=== PATIENT | female | born 2000 | race Caucasian/White ===

== ENCOUNTER 2019-03-29 00:30 | Emergency (ER) | payer OTHER, SELFPAY ==
[2019-03-29 00:36] VITALS: BP 119/70; PULSE 99; RESP 14; TEMP 36.8; O2SAT 98; BMI 27.3
[2019-03-29] MEDS: SODIUM CHLORIDE 0.9% 1,000 ML 1000 ML IV (00:50)
[2019-03-29 00:54] LABS: Add Manual Diff / Slide Review NO; Basophils Absolute Auto 0 /uL (0-100); Basophils Percent Auto 0.1 % (0-2); Eosinophils Absolute Auto 0 /uL (0-450); Hematocrit 40.7 % (36-46); Hemoglobin 13.6 g/dL (12.0-16.0); Lymphocytes Absolute Auto 1400 /uL (1100-4500); Lymphocytes Percent Auto 9.9 % (25-40); Mean Corpuscular HGB Conc 33.6 % (30-36); Mean Corpuscular Volume 89.3 fL (80-100); Monocytes Absolute Auto 700 /uL (0-900); Monocytes Percent Auto 4.8 % (3-14); Neutrophils Absolute Auto 12100 /uL (1500-7000); Neutrophils Percent Auto 85.2 % (50-75); Platelet Count 289 X10^3/uL (150-400); Red Blood Cell Count 4.55 X10^6/uL (4.0-5.2); Red Cell Distribution Width 12.9 % (11.6-14.8); White Blood Cell Count 14.2 X10^3/uL (4.5-11.0)
[2019-03-29 01:03] LABS: Alanine Aminotransferase 21 IU/L (9-52); Albumin 4.5 g/dL (3.5-5.0); Albumin Globulin Ratio 1.2 (1.0-2.8); Alkaline Phosphatase 84 U/L (38-126); Aspartate Aminotransferase 23 IU/L (14-36); BUN Creatinine Ratio 14.4 (6-22); Bilirubin Total 0.7 mg/dL (0.2-1.3); Blood Urea Nitrogen 13 mg/dL (7-17); Calcium 9.6 mg/dL (8.4-10.2); Carbon Dioxide 30 mmol/L (22-32); Chloride 100 mmol/L (98-107); Estimated Glomerular Filt Rate > 60.0 mL/min (>60); Globulin 3.7 g/dL (1.7-4.1); Glucose 142 mg/dL (70-100); HEMOLYSIS < 15 (0-50); Lipase 20 U/L (23-300); Potassium 4.5 mmol/L (3.4-5.1); Sodium 140 mmol/L (137-145); Total Protein 8.2 g/dL (6.3-8.2)
--- NOTE | 2019-03-29 01:31 | ED_ITS ---
HPI - Abdominal Pain General Chief Complaint: Abdominal Pain Stated Complaint: left side abdomen pain with throwing up all day Time Seen by Provider: 03/29/19 00:35 Source: patient Mode of arrival: Ambulatory Limitations: no limitations History of Present Illness HPI narrative: 18-year-old female here for evaluation of diarrhea, left-sided abdominal pain and nausea and vomiting. States the symptoms started this m orning and of continued throughout today. Multiple episodes of each. States the last time she had diarrhea was approximately noon today however she has vomited throughout the day. Went to an outside emergency department prior to visit here in the ER. Had labs and urine obtained. No imaging studies were performed for the patient. She was discharged home with prescriptions for medications. States that after she went home she continued to vomit. She was also told that if her abdominal pain worsen she should return to the emergency department which it did. Related Data Home Medications Medication Instructions Recorded Confirmed levothyroxine 50 mcg PO DAILY 03/29/19 03/29/19 Previous Rx's Medication Instructions Recorded hydrocodone-acetaminophen [[place]] 1 tab PO Q4-6H PRN #10 tab 03/29/19 ondansetron 4 mg PO Q6H PRN #10 tab 03/29/19 Allergies Allergy/AdvReac Type Severity Reaction Status Date / Time No Known Drug Allergies Allergy Verified 03/29/19 00:40 Review of Systems Constitutional Constitutional: Denies fever(s) and Denies headache(s) ENT Ears, Nose, Mouth, and Throat: Denies headache(s) Cardiovascular Cardiovascular: Denies chest pain and Denies dyspnea Respiratory Respiratory: Denies dyspnea Gastrointestinal Gastrointestinal: Reports abdominal pain, Reports diarrhea, Reports nausea and Reports vomiting Genitourinary Genitourinary: Denies dysuria Musculoskeletal Musculoskeletal: Denies myalgias and Denies arthralgias Integumentary/Breasts Skin/Breast: Denies lesions and Denies rash Neurologic Neurologic: Denies behavioral changes and Denies headache(s) Psychiatric Psychiatric: Denies behavioral changes Hematologic/Lymphatic Hematologic/Lymphatic: Denies easy bleeding and Denies easy bruising [facility] Medical History Healthy adult (Acute) Social History Smoking Status: Never smoker Social History Smoking Status: Never smoker Exam Initial Vital Signs Initial Vital Signs: Vital Signs Temperature 98.3 F 03/29/19 00:36 Pulse Rate 99 H 03/29/19 00:36 Respiratory Rate 14 03/29/19 00:36 Blood Pressure 119/70 03/29/19 00:36 Pulse Oximetry 98 10 00:36 Const General: cooperative, comfortable, well developed and well groomed Orientation: awake and oriented x3 HENMT Head: normal to inspection and normocephalic Resp Effort & Inspection: normal respiratory effort Auscultation: clear to auscultation bilaterally Cardio Rate: regular rate Rhythm: regular rhythm GI Inspection: non-distended Palpation: No firm and tender (Left side of abdomen) Back/Spine/Pelvis Back: No CVA tenderness Skin Lesions: no lesions Rashes: no rashes Neuro General: alert and awake Cognition: normal cognition Speech: speech normal Extrem General: normal to inspection and capillary refill normal Psych Appearance: grossly normal and well kempt Course Orders Ordered: ED Orders 03/29/19 00:45 Complete Blood Count AUTO DIFF Stat Comprehensive Metabolic Panel Stat Lipase Stat Test Serum,Qual Stat 03/29/19 01:32 CT abdomen pelvis w con Stat 03/29/19 02:15 Urine Microscopic Stat Discontinued Medications Hydrocodone Bitart/Acetaminophen (Vicodin Prepack) 1 bottle MISC SEEINSTR ONE Stop: 03/29/19 04:48 Last Admin: 03/29/19 04:54 Dose: 1 bottle Documented by: MARIA M Sodium Chloride (Normal Saline 0.9%) 1,000 mls @ 1,000 mls/hr IV BOLUS ONE Stop: 03/29/19 01:34 Last Infusion: 03/29/19 02:09 Dose: 0 mls/hr Documented by: MARIA M Admin: 03/29/19 00:50 Dose: 1,000 mls/hr Documented by: MARIA M Morphine Sulfate (Morphine) 2 mg IV NOW ONE Stop: 03/29/19 01:35 Last Admin: 03/29/19 03:43 Dose: Not Given Documented by: MARIA M Morphine Sulfate (Morphine) 4 mg IV NOW ONE Stop: 03/29/19 03:33 Last Admin: 03/29/19 03:41 Dose: 2 mg Documented by: MARIA M Ondansetron HCl (Zofran Odt Prepack) 1 bottle MISC SEEINSTR ONE Stop: 03/29/19 04:48 Last Admin: 03/29/19 04:55 Dose: 1 bottle Documented by: MARIA M Vital Signs Vital signs: Vital Signs - 8 hr 03/29/19 00:36 03/29/19 02:33 03/29/19 04:15 Temperature 98.3 F Pulse Rate 99 H 82 84 Respiratory Rate 14 Blood Pressure 119/70 Blood Pressure [Left Arm] 122/78 110/67 Pulse Oximetry 98 100 97 MDM - Abdominal Pain Lab Data Attestation: I reviewed the patient's lab results. Result diagrams: 03/29/19 00:45 03/29/19 00:45 Labs: Lab Results 03/29/19 03/29/19 03/29/19 Range/Units 00:45 00:45 00:45 WBC 14.2 H (4.5-11.0) X10^3/uL RBC 4.55 (4.0-5.2) X10^6/uL Hgb 13.6 (12.0-16.0) g/dL Hct 40.7 (36-46) % MCV 89.3 (80-100) fL MCH 30.0 (26-34) PG MCHC 33.6 (30-36) % RDW 12.9 (11.6-14.8) % Plt Count 289 (150-400) X10^3/uL Neut % (Auto) 85.2 H (50-75) % Lymph % (Auto) 9.9 L (25-40) % [place] % (Auto) 4.8 (3-14) % Eos % (Auto) 0.0 L (2-4) % Baso % (Auto) 0.1 (0-2) % Neut # (Auto) 83126 H (7688-4696) /uL Lymph # (Auto) 1400 (9193-6374) /uL [place] # (Auto) 700 (0-900) /uL Eos # (Auto) 0 (0-450) /uL Baso # (Auto) 0 (0-100) /uL Sodium 140 (137-145) mmol/L Potassium 4.5 (3.4-5.1) mmol/L Chloride 100 (98-107) mmol/L Carbon Dioxide 30 (22-32) mmol/L BUN 13 (7-17) mg/dL Creatinine 0.90 (0.52-1.04) mg/dL Estimated GFR > 60.0 (>60) mL/min BUN/Creatinine Ratio 14.4 (6-22) Glucose 142 H (70-100) mg/dL Calcium 9.6 (8.4-10.2) mg/dL Total Bilirubin 0.7 (0.2-1.3) mg/dL AST 23 (14-36) IU/L ALT 21 (9-52) IU/L Alkaline Phosphatase 84 (38-126) U/L Total Protein 8.2 (6.3-8.2) g/dL Albumin 4.5 (3.5-5.0) g/dL Globulin 3.7 (1.7-4.1) g/dL Albumin/Globulin Ratio 1.2 (1.0-2.8) Lipase 20 L (23-300) U/L Serum , Qual Negative (Negative) Urine RBC (0-5/HPF) Urine WBC (0-5/HPF) Ur Squamous Epith Cells (0-5/HPF) Urine Bacteria (None) Hyaline Casts (None) Urine Mucus (Negative) Ur Culture Indicated? 03/29/19 Range/Units 02:15 WBC (4.5-11.0) X10^3/uL RBC (4.0-5.2) X10^6/uL Hgb (12.0-16.0) g/dL Hct (36-46) % MCV (80-100) fL MCH (26-34) PG MCHC (30-36) % RDW (11.6-14.8) % Plt Count (150-400) X10^3/uL Neut % (Auto) (50-75) % Lymph % (Auto) (25-40) % [place] % (Auto) (3-14) % Eos % (Auto) (2-4) % Baso % (Auto) (0-2) % Neut # (Auto) (1895-5840) /uL Lymph # (Auto) (5436-8588) /uL [place] # (Auto) (0-900) /uL Eos # (Auto) (0-450) /uL Baso # (Auto) (0-100) /uL Sodium (137-145) mmol/L Potassium (3.4-5.1) mmol/L Chloride (98-107) mmol/L Carbon Dioxide (22-32) mmol/L BUN (7-17) mg/dL Creatinine (0.52-1.04) mg/dL Estimated GFR (>60) mL/min BUN/Creatinine Ratio (6-22) Glucose (70-100) mg/dL Calcium (8.4-10.2) mg/dL Total Bilirubin (0.2-1.3) mg/dL AST (14-36) IU/L ALT (9-52) IU/L Alkaline Phosphatase (38-126) U/L Total Protein (6.3-8.2) g/dL Albumin (3.5-5.0) g/dL Globulin (1.7-4.1) g/dL Albumin/Globulin Ratio (1.0-2.8) Lipase (23-300) U/L Serum , Qual (Negative) Urine RBC 5-10/hpf H (0-5/HPF) Urine WBC 0-1/hpf (0-5/HPF) Ur Squamous Epith Cells 1-5 /hpf (0-5/HPF) Urine Bacteria Moderate (10-30) H (None) Hyaline Casts 0-1/lpf (None) Urine Mucus 1+ H (Negative) Ur Culture Indicated? Cult not indicated Point of care testing: Urine Dip Bedside Urine Glucose Negative Bedside Urine Bilirubin - Negative Bedside Urine Ketone +++ 80 Urine Specific [place] 1.020 Bedside Urine Occult Blood ++ Bedside Urine pH 6.0 Bedside Urine Protein +/- 15 Bedside Urine Urobilinogen - Negative Bedside Urine Nitrite - Negative Bedside Urine Leukocytes - Negative Esterase Imaging Data CT scan - abdomen: Radiologist's impression: Mild left hydronephrosis secondary to 3 mm left UVJ calculus MDM Narrative Medical decision making narrative: Patient has not vomited since being here in the ER. Has not had any episodes of diarrhea since being here in the ER. Urine shows no signs of infection. Creatinine is unremarkable. CT scan shows 3 mm left-sided UVJ stone which would explain her abdominal pain and vomiting however does not explain the diarrhea. She has a benign abdominal exam otherwise. No other CT scan evidence of other intra-abdominal surgical pathology. Will send home with symptom treatment. We did discuss the findings on the CT scan with the patient. She was given strict return precautions. She expressed understanding and agreement with plan. Discharge Plan Departure Patient Disposition: Home Clinical Impression: Renal colic on left side Diarrhea Qualifiers: Diarrhea type: unspecified type Qualified Code(s): R19.7 - Diarrhea, unspecified Vomiting Qualifiers: Vomiting type: unspecified Vomiting Intractability: unspecified Nausea presence: unspecified Qualified Code(s): R11.10 - Vomiting, unspecified Instructions: Kidney Stones (Alternative Therapy), DI for Kidney Stones, DI for Vomiting -- Adult Activity Restrictions/Additional Instructions: Recommend that you increase your fluid intake by drinking small amounts of fluid over longer periods of time take the medication as needed as directed. You do have a kidney stone on the left side. Contact your primary provider for follow- up. Return to the emergency department for any new symptoms to include fevers, inability to tolerate any oral intake, worsening pain, inability to urinate, or any other concerning symptoms Prescriptions: New hydrocodone-acetaminophen [[place]] 5-325 mg tablet 1 tab PO Q4-6H PRN (Reason: pain) Qty: 10 RF: 0 ondansetron 4 mg tablet,disintegrating 4 mg PO Q6H PRN (Reason: nausea and vomiting) Qty: 10 RF: 0 No Action levothyroxine 50 mcg Capsule 50 mcg PO DAILY RF: 0
--- NOTE | 2019-03-29 01:32 | DI.CT.S_ITS ---
PROCEDURE: CT ABDOMEN PELVIS W CON INDICATIONS: Left-sided abdominal pain TECHNIQUE: After the administration of oral and intravenous contrast, 5 mm thick sections acquired from the diaphragms to the symphysis. 5 mm thick coronal and sagittal reformats were performed. For radiation dose reduction, the following was used: automated exposure control, adjustment of mA and/or kV according to patient size. COMPARISON: None. FINDINGS: Image quality: Diagnostic. ABDOMEN: Lung bases: Lung bases are clear. Heart size is normal. Solid organs: There is a 3 x 3 x 4 mm calculus identified within the distal left ureter at the vesicoureteral junction (image 72, series 2) with corresponding moderate left-sided hydronephrosis and hydroureter. A delayed left renal nephrogram is evident. There is an additional nonobstructing 3-4 mm calculus involving the inferior left kidney. There may be a small calculus within the inferior margin of the right kidney. The right kidney is otherwise unremarkable without hydronephrosis or hydroureter. The liver is slightly hypodense when compared to the spleen. The spleen, adrenals, and pancreas are within normal limits. Peritoneum and bowel: There is a small hiatal hernia. The stomach is otherwise unremarkable. The small bowel loops are nondilated. The colon is largely decompressed and subsequently not well evaluated. There is no bowel obstruction. The appendix appears to be within normal limits. No free fluid, loculated fluid collection or free air is evident. Nodes and vessels: No retroperitoneal or mesenteric adenopathy. Aorta and inferior vena cava are normal in caliber. Bones: No acute fracture or suspicious osseous lesion is evident. PELVIS: Genitourinary: Bladder wall thickness is normal. The uterus and ovaries do not appear to be enlarged, but are not adequately evaluated on CT. Miscellaneous: No inguinal hernias or adenopathy. Bones: No suspicious bony lesions. No acute fracture is evident. No free fluid or loculated fluid collections identified. IMPRESSION: 1. At least partially obstructing distal left ureteral calculus with corresponding moderate left-sided hydronephrosis and hydroureter. 2. An additional nonobstructing inferior left renal calculus is present. There may also be in the inferior right renal calculus. 3. No bowel obstruction. 4. Possible mild hepatic steatosis. 5. Small hiatal hernia. Dictated by: Andre Hodges M.D. on 03/29/2019 at 7:52 Approved by: Andre Hodges M.D. on 03/29/2019 at 7:57
[2019-03-29 01:44] LABS: Pregnancy Test Serum,Qual Negative (Negative)
[2019-03-29 02:33] VITALS: BP 122/78; PULSE 82; O2SAT 100
[2019-03-29 02:49] LABS: Bacteria Urine Moderate (10-30); Hyaline Casts Urine 0-1/LPF; Mucus Urine 1+ (Negative); RBC Urine 5-10/HPF (0-5/HPF); Squamous Epithelial Cell Urine 1-5 /HPF (0-5/HPF); WBC Urine 0-1/HPF (0-5/HPF)
[2019-03-29 02:50] LABS: Culture Indicated Urine Cult Not Indicated
[2019-03-29] MEDS: MORPHINE 4 MG/ML INJ IV (03:41)
--- NOTE | 2019-03-29 03:43 | PC.NURSE ---
provider notified of patient having an IV in place. Provider verbal ordered route change to IV. Read back and verified order with JONAS
[2019-03-29 04:15] VITALS: BP 110/67; PULSE 84; O2SAT 97
[2019-03-29] MEDS: HYDROCODONE/ACET 5/325 PREPACK 1 BOTTLE MISC (04:54)
[2019-03-29] MEDS: ONDANSETRON 4 MG ODT PREPACK 1 BOTTLE MISC (04:55)
[2019-03-29 05:06] VITALS: BP 106/76; PULSE 78; RESP 14; O2SAT 99
== END 2019-03-29 05:07 | disposition home or self-care (01) ==
PROVIDERS: Emergency Provider Emergency Medicine
DX: N23 Unspecified renal colic (principal); R19.7 Diarrhea, unspecified; R11.2 Nausea with vomiting, unspecified
CPT/HCPCS: 36415; 74177; 80053; 81003; 81015; 83690; 84703; 85025; 96361; 96374; 99283; 99285; J2270

== ENCOUNTER 2019-04-29 01:12 | Emergency (ER) | payer OTHER, SELFPAY ==
--- NOTE | 2019-04-29 01:17 | ED_ITS ---
HPI - General Adult General Chief complaint: Back Pain/Injury Stated complaint: left side pain Time Seen by Provider: 04/29/19 01:15 Source: patient Mode of arrival: Ambulatory Limitations: no limitations History of Present Illness HPI narrative: 18-year-old female who I evaluated this emergency department in the past arrives today for left-sided flank and abdominal pain. My last evaluation for was diagnosed a left-sided kidney stone. Patient states that after that visit her pain went away. She states that the pain today is similar to that prior kidney stone pain however little worse. Fairly sudden onset. Nausea. Has not tried anything for the symptoms prior to arrival. Related Data Home Medications Medication Instructions Recorded Confirmed levothyroxine 50 mcg PO DAILY 03/29/19 03/29/19 Previous Rx's Medication Instructions Recorded hydrocodone-acetaminophen [[place]] 1 tab PO Q4-6H PRN #10 tab 03/29/19 ondansetron 4 mg PO Q6H PRN #10 tab 03/29/19 Allergies Allergy/AdvReac Type Severity Reaction Status Date / Time No Known Drug Allergies Allergy Verified 03/29/19 00:40 Review of Systems Constitutional Constitutional: Denies fever(s) Cardiovascular Cardiovascular: Denies chest pain and Denies dyspnea Respiratory Respiratory: Denies dyspnea Gastrointestinal Gastrointestinal: Reports abdominal pain, Reports nausea and Denies vomiting Genitourinary Genitourinary: Denies urinary frequency, Denies dysuria, Denies urinary hesitancy and Denies urinary urgency Musculoskeletal Musculoskeletal: Denies arthralgias Integumentary/Breasts Skin/Breast: Denies rash Neurologic Neurologic: Denies behavioral changes Psychiatric Psychiatric: Denies behavioral changes Hematologic/Lymphatic Hematologic/Lymphatic: Denies easy bleeding and Denies easy bruising Patient History Medical History Healthy adult (Acute) Social History Smoking Status: Never smoker alcohol intake frequency: 0-2 drinks per day Substance Use Type: does not use Exam Initial Vital Signs Initial Vital Signs: Vital Signs Temperature 98.1 F 04/29/19 01:20 Pulse Rate 107 H 04/29/19 01:20 Respiratory Rate 18 04/29/19 01:20 Blood Pressure 141/76 H 04/29/19 01:20 Pulse Oximetry 100 04/29/19 01:20 Const General: cooperative and No comfortable (Uncomfortable) Orientation: alert, awake and oriented x3 HENMT Head: normal to inspection and normocephalic Resp Effort & Inspection: normal respiratory effort Auscultation: clear to auscultation bilaterally Cardio Rate: regular rate GI Inspection: non-distended Palpation: soft, No firm and tender (Left-sided abdomen) Skin Lesions: no lesions Rashes: no rashes Neuro General: alert and awake Cognition: normal cognition Speech: speech normal Motor: muscle tone normal throughout Extrem General: normal to inspection and capillary refill normal Psych Appearance: grossly normal and well kempt Course Orders Ordered: ED Orders 04/29/19 01:27 Basic Metabolic Panel Stat Complete Blood Count AUTO DIFF Stat Test Serum,Qual Stat 04/29/19 02:44 Urine Microscopic Stat Discontinued Medications Lidocaine HCl 5.1 ml/ Sodium (Chloride) 55.1 mls @ 330.6 mls/hr IV NOW ONE Stop: 04/29/19 01:25 Last Infusion: 04/29/19 01:50 Dose: 0 mls/hr Documented by: Admin: 04/29/19 01:37 Dose: 330.6 mls/hr Documented by: ANA Ketorolac Tromethamine (Toradol) 30 mg IV NOW ONE Stop: 04/29/19 01:20 Last Admin: 04/29/19 01:38 Dose: 30 mg Documented by: ANA Ondansetron HCl (Zofran) 4 mg IV NOW ONE Stop: 04/29/19 01:20 Last Admin: 04/29/19 01:38 Dose: 4 mg Documented by: ANA Vital Signs Vital signs: Vital Signs - 8 hr 04/29/19 01:20 04/29/19 02:05 Temperature 98.1 F Pulse Rate 107 H 80 Respiratory Rate 18 20 Blood Pressure 141/76 H Blood Pressure [Left Arm] 121/79 Pulse Oximetry 100 98 Medical Decision Making Medical Records Medical records reviewed: Yes I reviewed the patient's medical records. Lab Data Lab results reviewed: Yes I reviewed the patient's lab results. Result diagrams: 04/29/19 01:27 04/29/19 01:27 Labs: Lab Results 04/29/19 04/29/19 04/29/19 Range/Units 01:27 01:27 01:27 WBC 10.1 (4.5-11.0) X10^3/uL RBC 4.52 (4.0-5.2) X10^6/uL Hgb 13.8 (12.0-16.0) g/dL Hct 39.8 (36-46) % MCV 88.2 (80-100) fL MCH 30.5 (26-34) PG MCHC 34.6 (30-36) % RDW 12.9 (11.6-14.8) % Plt Count 250 (150-400) X10^3/uL Neut % (Auto) 85.2 H (50-75) % Lymph % (Auto) 11.4 L (25-40) % [place] % (Auto) 3.1 (3-14) % Eos % (Auto) 0.1 L (2-4) % Baso % (Auto) 0.2 (0-2) % Neut # (Auto) 8600 H (1810-4037) /uL Lymph # (Auto) 1200 (3320-0604) /uL [place] # (Auto) 300 (0-900) /uL Eos # (Auto) 0 (0-450) /uL Baso # (Auto) 0 (0-100) /uL Sodium 141 (137-145) mmol/L Potassium 3.9 (3.4-5.1) mmol/L Chloride 102 (98-107) mmol/L Carbon Dioxide 27 (22-32) mmol/L BUN 13 (7-17) mg/dL Creatinine 0.70 (0.52-1.04) mg/dL Estimated GFR > 60.0 (>60) mL/min BUN/Creatinine Ratio 18.6 (6-22) Glucose 137 H (70-100) mg/dL Calcium 9.9 (8.4-10.2) mg/dL Serum , Qual Negative (Negative) Urine RBC (0-5/HPF) Urine WBC (0-5/HPF) Ur Squamous Epith Cells (0-5/HPF) Amorphous Sediment Urine Bacteria (None) Urine Mucus (Negative) Ur Culture Indicated? 04/29/19 Range/Units 02:44 WBC (4.5-11.0) X10^3/uL RBC (4.0-5.2) X10^6/uL Hgb (12.0-16.0) g/dL Hct (36-46) % MCV (80-100) fL MCH (26-34) PG MCHC (30-36) % RDW (11.6-14.8) % Plt Count (150-400) X10^3/uL Neut % (Auto) (50-75) % Lymph % (Auto) (25-40) % [place] % (Auto) (3-14) % Eos % (Auto) (2-4) % Baso % (Auto) (0-2) % Neut # (Auto) (0631-4670) /uL Lymph # (Auto) (7750-2421) /uL [place] # (Auto) (0-900) /uL Eos # (Auto) (0-450) /uL Baso # (Auto) (0-100) /uL Sodium (137-145) mmol/L Potassium (3.4-5.1) mmol/L Chloride (98-107) mmol/L Carbon Dioxide (22-32) mmol/L BUN (7-17) mg/dL Creatinine (0.52-1.04) mg/dL Estimated GFR (>60) mL/min BUN/Creatinine Ratio (6-22) Glucose (70-100) mg/dL Calcium (8.4-10.2) mg/dL Serum , Qual (Negative) Urine RBC 5-10/hpf H (0-5/HPF) Urine WBC None seen (0-5/HPF) Ur Squamous Epith Cells 5-10 /hpf H (0-5/HPF) Amorphous Sediment 3+ Urine Bacteria Many (>30) H (None) Urine Mucus 2+ H (Negative) Ur Culture Indicated? Cult not indicated Urine Dip Bedside Urine Glucose Negative Bedside Urine Bilirubin - Negative Bedside Urine Ketone ++ 40 Urine Specific [place] 1.010 Bedside Urine Occult Blood + Bedside Urine pH 8.0 Bedside Urine Protein - Negative Bedside Urine Urobilinogen +/- 1mg Bedside Urine Nitrite - Negative Bedside Urine Leukocytes - Negative Esterase Point of care testing: Urine Dip Bedside Urine Glucose Negative Bedside Urine Bilirubin - Negative Bedside Urine Ketone ++ 40 Urine Specific [place] 1.010 Bedside Urine Occult Blood + Bedside Urine pH 8.0 Bedside Urine Protein - Negative Bedside Urine Urobilinogen +/- 1mg Bedside Urine Nitrite - Negative Bedside Urine Leukocytes - Negative Esterase MDM Narrative Medical decision making narrative: Patient does report improvement of her symptoms after medications. Her kidney functions unremarkable. Urinalysis shows blood but no signs of infection. I do suspect that her symptoms are related to renal colic. I will hold on a CT scan for now. Patient was given symptom treatment and return precautions and follow-up instructions. She expres sed understanding and agreement with plan. Discharge Plan Departure Patient Disposition: Home Clinical Impression: Renal colic on left side Instructions: Kidney Stones -- Adult Activity Restrictions/Additional Instructions: Contact her primary care provider for follow-up. Take the medications as directed. Return to the emergency department for any fevers or any other worsening symptoms Prescriptions: No Action levothyroxine 50 mcg Capsule 50 mcg PO DAILY RF: 0 hydrocodone-acetaminophen [[place]] 5-325 mg tablet 1 tab PO Q4-6H PRN (Reason: pain) Qty: 10 RF: 0 ondansetron 4 mg tablet,disintegrating 4 mg PO Q6H PRN (Reason: nausea and vomiting) Qty: 10 RF: 0
[2019-04-29 01:20] VITALS: BP 141/76; PULSE 107; RESP 18; TEMP 36.7; O2SAT 100; BMI 29.2
[2019-04-29] MEDS: LIDOCAINE 2% 5.1 ML in SODIUM CHLORIDE 0.9% 50 ML 330.6 ML IV (01:37)
[2019-04-29] MEDS: ONDANSETRON 4 MG/2 ML INJ IV (01:38)
[2019-04-29] MEDS: KETOROLAC 60 MG/2 ML VIAL 30 MG IV (01:38)
[2019-04-29 01:41] LABS: Add Manual Diff / Slide Review NO; Basophils Absolute Auto 0 /uL (0-100); Basophils Percent Auto 0.2 % (0-2); Eosinophils Absolute Auto 0 /uL (0-450); Eosinophils Percent Auto 0.1 % (2-4); Hematocrit 39.8 % (36-46); Hemoglobin 13.8 g/dL (12.0-16.0); Lymphocytes Absolute Auto 1200 /uL (1100-4500); Lymphocytes Percent Auto 11.4 % (25-40); Mean Corpuscular HGB Conc 34.6 % (30-36); Mean Corpuscular Hemoglobin 30.5 PG (26-34); Mean Corpuscular Volume 88.2 fL (80-100); Monocytes Absolute Auto 300 /uL (0-900); Monocytes Percent Auto 3.1 % (3-14); Neutrophils Absolute Auto 8600 /uL (1500-7000); Neutrophils Percent Auto 85.2 % (50-75); Platelet Count 250 X10^3/uL (150-400); Red Blood Cell Count 4.52 X10^6/uL (4.0-5.2); Red Cell Distribution Width 12.9 % (11.6-14.8); White Blood Cell Count 10.1 X10^3/uL (4.5-11.0)
[2019-04-29 01:44] LABS: BUN Creatinine Ratio 18.6 (6-22); Blood Urea Nitrogen 13 mg/dL (7-17); Calcium 9.9 mg/dL (8.4-10.2); Carbon Dioxide 27 mmol/L (22-32); Chloride 102 mmol/L (98-107); Estimated Glomerular Filt Rate > 60.0 mL/min (>60); Glucose 137 mg/dL (70-100); HEMOLYSIS < 15 (0-50); Potassium 3.9 mmol/L (3.4-5.1); Sodium 141 mmol/L (137-145)
[2019-04-29 01:48] LABS: Pregnancy Test Serum,Qual Negative (Negative)
[2019-04-29 02:05] VITALS: BP 121/79; PULSE 80; RESP 20; O2SAT 98
[2019-04-29 02:56] LABS: WBC Urine None Seen (0-5/HPF)
[2019-04-29 03:01] LABS: Amorphous Sediment Urine 3+; RBC Urine 5-10/HPF (0-5/HPF); Squamous Epithelial Cell Urine 5-10 /HPF (0-5/HPF)
[2019-04-29 03:02] LABS: Bacteria Urine Many (>30); Culture Indicated Urine Cult Not Indicated; Mucus Urine 2+ (Negative)
[2019-04-29] MEDS: ONDANSETRON 4 MG ODT PREPACK 1 BOTTLE MISC (03:27)
[2019-04-29] MEDS: TRAMADOL 50 MG PREPACK 1 BOTTLE MISC (03:27)
[2019-04-29 03:35] VITALS: BP 111/67; PULSE 73; RESP 16; O2SAT 98
== END 2019-04-29 03:35 | disposition home or self-care (01) ==
PROVIDERS: Emergency Provider Emergency Medicine
DX: N23 Unspecified renal colic (principal); Z87.442 Personal history of urinary calculi; R11.0 Nausea
CPT/HCPCS: 36415; 80048; 81003; 81015; 84703; 85025; 96374; 96375; 99283; 99284; J1885; J2405

== ENCOUNTER → 2019-10-05 11:28 | Outpatient (CLI) | payer OTHER, SELFPAY ==
--- NOTE | 2019-10-05 | DI.MRI.S_ITS ---
PROCEDURE: MR HEAD/BRAIN WO CON INDICATIONS: HEADACHE TECHNIQUE: Noncontrast axial T1 spin echo, axial T2 fast spin echo, sagittal and axial FLAIR, coronal T2 fast spin echo, axial gradient echo, axial diffusion and ADC through the brain. COMPARISON: None. FINDINGS: Image quality: Excellent. CSF Spaces: Basal cisterns are patent. No extra-axial fluid collections. Ventricles are normal in size and shape. Brain: No intracranial masses or hemorrhage. [place]/white matter interface is normal. Brainstem appears normal. Diffusion-weighted images demonstrate no acute ischemic insult. No chronic ischemic insults. Normal intravascular flow voids are present. Skull and face: Calvarium has normal marrow signal. Orbits appear normal. Sinuses: Minimal soft tissue, right maxillary sinus. IMPRESSION: 1. Normal appearance of brain parenchyma. No acute stroke, hemorrhage, or mass. 2. Minimal right maxillary sinus disease. Dictated by: Berny eBnson M.D. on 10/05/2019 at 12:41 Approved by: Berny Benson M.D. on 10/05/2019 at 12:44
== END ==
PROVIDERS: Referring Provider Family Medicine; Visit Provider Family Medicine
DX: R51 Headache (principal)
CPT/HCPCS: 70551